=== PATIENT | male | born 1950 | race Caucasian/White ===

== ENCOUNTER 2021-09-23 10:08 | Day surgery (SDC) | payer OTHER ==
[2021-09-16 11:44] LABS: BASOPHILS # (AUTO) 0.1 X10'3 (0-0.2); BASOPHILS % (AUTO) 0.8 % (0-1); EOSINOPHILS # (AUTO) 0.4 X10'3 (0-0.9); EOSINOPHILS % (AUTO) 3.9 % (0-6); LYMPHOCYTES # (AUTO) 1.9 X10'3 (1.1-4.8); LYMPHOCYTES % (AUTO) 18.6 % (21-51); MEAN CORPUSCULAR HEMOGLOBIN 31.8 PG (27.0-31.0); MEAN CORPUSCULAR HGB CONC 34.2 g/dL (33.0-36.5); MEAN PLATELET VOLUME 9.9 FL (7.4-10.4); MONOCYTES # (AUTO) 1.3 X10'3 (0-0.9); MONOCYTES % (AUTO) 12.8 % (2-12); NEUTROPHILS # (AUTO) 6.4 X10'3 (1.8-7.7); NEUTROPHILS % (AUTO) 63.9 % (42-75); PRE OP HEMATOCRIT 39.7 % (42.0-52.0); PRE OP HEMOGLOBIN 13.6 g/dL (14.0-17.9); PRE OP PLATELET COUNT 172 X10'3 (140-440); RED BLOOD COUNT 4.27 X10'6 (4.70-6.10); RED CELL DISTRIBUTION WIDTH 13.8 % (11.5-14.5)
[2021-09-16 12:32] LABS: ALBUMIN 3.8 G/DL (3.4-5.0); ALBUMIN/GLOBULIN RATIO 1.2 (1.1-1.5); ALKALINE PHOSPHATASE 80 IU/L (46-116); BLOOD UREA NITROGEN 12 MG/DL (7-18); BUN/CREATININE RATIO 10.1 (5.4-32.0); CALCIUM 8.8 MG/DL (8.5-10.1); CREATININE 1.19 MG/DL (0.60-1.10); PRE OP ALT 18 U/L (30-65); PRE OP AST 15 U/L (10-37); PRE OP BILIRUB, TOTAL 0.3 MG/DL (0.0-1.0); PRE OP GLUCOSE 91 MG/DL (70-104); TOTAL CARBON DIOXIDE 25.6 MMOL/L (24-32); eGFR 60 ML/MIN
[2021-09-16 13:06] LABS: CHLORIDE 105 MMOL/L (99-107); PRE OP ANION GAP 9 (8-16); PRE OP SODIUM 140 MMOL/L (135-145)
[2021-09-23] VITALS (16 sets, daily range): BP systolic 115–136; BP diastolic 65–86
[~2021-09-23] VITALS: Ht 175.3 cm; Wt 60.2 kg
[~2021-09-23 10:08] MED LIST: ATOR40TA PO; LISI20TA28 PO; cefazolin/dext.iso 2gm/50ml IV ONE; famotidine 20mg tablet PO ONE; ringers solution, lacted 1,000 ML IV SCH; sevoflurane 250ml liquid IH ONE
[2021-09-23] MEDS ORDERED: BUPIVAcaine 0.5% inj/PF 30 ML ONE (13:03)
[2021-09-23] MEDS ORDERED: LIDOcaine 1% 30ml preserv. free vial ONE (13:03)
[2021-09-23] MEDS ORDERED: midazolam 1 mg/ML 2ml injection ONE (13:19)
[2021-09-23] MEDS ORDERED: fentaNYL/PF 50MCG/1 ML 2ML syringe ONE (13:19)
[2021-09-23] MEDS ORDERED: morphine 2 MG/ML inj. syringe IV PRN (13:50)
[2021-09-23] MEDS ORDERED: morphine 4 MG/ML inj SYRINge IV PRN (13:50)
[2021-09-23] MEDS ORDERED: meperidine/PF 25mg/ml syringe IV PRN ×3 (13:50)
[2021-09-23] MEDS ORDERED: proCHLORperazine 10 MG/2 ml inj IV PRN (13:50)
[2021-09-23] MEDS ORDERED: ringers solution, lacted 1,000 ML IV SCH (13:50)
[2021-09-23] MEDS ORDERED: ondansetron/PF 4mg/2ml inj IV PRN (13:50)
[2021-09-23] MEDS ORDERED: BUPIVAcaine 0.5% inj/PF 30 ml vial IJ ONE (14:03)
[2021-09-23] MEDS ORDERED: rocuronium 10mg/ml inj IV ONE (14:09)
[2021-09-23] MEDS ORDERED: neostigmine methylsulfate 1 MG/ML 10ml vial ONE (14:09)
[2021-09-23] MEDS ORDERED: glycopyrrolate 0.2mg/ml inj ONE (14:09)
[2021-09-23] MEDS ORDERED: dexamethasone sod phosphate 4mg/ml inj. ONE (14:10)
[2021-09-23] MEDS ORDERED: ondansetron/PF 4mg/2ml inj ONE (14:10)
[2021-09-23] MEDS ORDERED: propofol inj 20 ML IV ONE (14:10)
--- NOTE | 2021-09-23 14:24 | NUR ---
Received from OR via [facility], accompanied by Anesthesiologist DR PINK and report given by Anesthesiologist AND DECK ENGINEER. PT DROWSY, DENIES PAIN, ABDOMEN W/3 LAP SITES W/BANDAIDS CDI. Addendum: 09/23/21 at 1443 by Mariangel Rivera RN Amended: Links added.
[2021-09-23] MEDS ORDERED: HYDROcodone/acetaminophen 5mg/325mg tablet PO PRN (14:25)
--- NOTE | 2021-09-23 17:33 | NUR ---
PT HAS VOIDED X 2, BUT OVER 400 ML URINE REMAINS ON BLADDER SCAN, CALLED DR FLORES, ORDERS RECEIVED TO PLACE MANDEL CATHETER AND HAVE REMOVED IN HIS OFFICE, OR IF PT INSISTS MAY STRAIGHT CATH AND D/C PT TO HOME. Addendum: 09/23/21 at 1735 by Mariangel Rivera RN Amended: Links added.
[2021-09-23] MEDS ORDERED: LIDOcaine 2% 10ml TOPICAL JELLY (Urojet) MM ONE (17:35)
--- NOTE | 2021-09-23 18:34 | NUR ---
MANDEL CATHETER 16 FILIPINO PLACED W/ASEPTIC TECHNIQUE, PT TOLERATED FAIR, RETURN OF A SMALL AMOUNT OF BLOODY URINE IN BEGINNING FOR FIRST FEW CC'S OF URINE THEN BECAME YELLOW IN COLOR FOR A TOTAL OF 520 ML. D/C TEACHING AND INSTRUCTIONS GIVEN AND GONE OVER W/PT AND PTS WHO VERBALIZED UNDERSTANDING. PT D/CD TO HOME VIA W/C TO PRIVATE VEHICLE. Addendum: 09/23/21 at 1842 by Mariangel Rivera RN Amended: Links added.
== END 2021-09-23 18:34 | disposition home or self-care (01) ==
LOC: PAS 10:08
PROVIDERS: ATTEND Surgery
DX: K40.90 Unilateral inguinal hernia, without obstruction or gangrene, not specified as recurrent (principal); I10 Essential (primary) hypertension; E78.5 Hyperlipidemia, unspecified; F17.210 Nicotine dependence, cigarettes, uncomplicated; Z95.0 Presence of cardiac pacemaker; Z20.822 Contact with and (suspected) exposure to COVID-19; Z79.899 Other long term (current) drug therapy; Z90.49 Acquired absence of other specified parts of digestive tract; Z98.49 Cataract extraction status, unspecified eye; Z95.820 Peripheral vascular angioplasty status with implants and grafts; Z82.49 Family history of ischemic heart disease and other diseases of the circulatory system
CPT/HCPCS: 36415; 49650; 80053; 82948; 85025; C1781; J0690; J1100; J2250; J2405; J2704; J2710; J3010; J3490; J7030; J7120; S0020; U0003; U0005; Z7506; Z7508; Z7512; A4215; A4618

== ENCOUNTER 2025-06-07 16:56 | Emergency (ER) | payer OTHER ==
[~2025-06-07] VITALS: Ht 167.6 cm; Wt 63.6 kg
[~2025-06-07 16:56] MED LIST changes: -cefazolin/dext.iso 2gm/50ml IV ONE; -famotidine 20mg tablet PO ONE; -ringers solution, lacted 1,000 ML IV SCH; -sevoflurane 250ml liquid IH ONE
[2025-06-07 17:06] VITALS: TEMP 97.7
--- NOTE | 2025-06-07 17:15 | ELECTROCARDIOGRAPH REPORT ---
[facility] Test Date: 2025-06-07 Test Time: 17:13:11 Pat Name: FLEIX CALDWELL Department: EMERGENCY ROOM Room: Gender: M [employer]: NANCY : 1950 Requested By: ALEXANDRA HAYS Order Number: [id number] Reading MD: Measurements Intervals [place] Rate: 62 P: 0 SD: 193 QRS: 40 QRSD: 91 T: 56 QT: 412 QTc: 419 Interpretive Statements Atrial-paced complexes Borderline low voltage, extremity leads Please click the below link to view image of tracing.
[2025-06-07 17:20] LABS: MEAN PLATELET VOLUME 9.1 FL (7.4-10.4); RED CELL DISTRIBUTION WIDTH 14.0 % (11.5-14.5)
--- NOTE | 2025-06-07 17:32 | RADIOLOGY REPORT ---
CHEST RADIOGRAPH Indication: CP Technique: Single frontal view of the chest was obtained Comparison: None FINDINGS: Lines and Tubes: None. Left-sided approach dual lead pacemaker terminating within right atrium and r ight ventricle. Lungs: No focal consolidation. Pleura: No effusion. No pneumothorax. Cardiomediastinal contours: Unremarkable Bones: No acute osseous abnormality. IMPRESSION: No acute cardiopulmonary disease.
[2025-06-07 17:43] LABS: CREATININE 1.40 MG/DL (0.60-1.10); PRO BRAIN NATRIURETIC PEPTIDE 244 PG/ML (0-450); TOTAL CARBON DIOXIDE 24.3 MMOL/L (24-32); eCRCL 40 ML/MIN; eGFR 49 ML/MIN
--- NOTE | 2025-06-07 19:27 | Physician Documentation ---
History of Present Illness ~ Chief Complaint: Dizziness Stated Complaint: DIZZY Time Seen by MD: 19:26 HPI Patient presents to the emergency room for evaluation of dizziness. He is feeling dizzy like he was going to pass out and then states it feels like vertigo exacerbated with head movement. He noted that has heart rate was going down into the 50s and he is normally paste that has 70 therefore [facility] that has noted to be bradycardic. He has history of pacemaker placement and supposed to be paced at 70. He denies any chest pain. He reports that he just had his pacemaker checked about two weeks ago and was reported to be in good condition with another four years left of battery life. Medication Reconciliation Allergies: Coded Allergies: No Known Allergies (Unverified , 09/22/21) Scheduled Atorvastatin Calcium* (Lipitor*), 1 TAB PO DAILY, (Reported) Lisinopril (Lisinopril), 5 MG PO DAILY, (Reported) Review of Systems ROS All review of systems negative except as per HPI Physical Exam Vital Signs: Temperature: 97.7, Source: Temporal, Heart Rate: 60, Respiratory Rate: 16, BP: 160/86, Pulse Oximetry: 97, Weight: 63.640 Physical Exam General: Patient is awake, alert, oriented x4 in no acute distress Head: Normocephalic and atraumatic. Eyes: Conjunctival normal. EOMI. PERRL. ENT: Mucous membranes moist. Neck: Supple, trachea is midline. Chest: Clear to auscultation bilaterally without rales, rhonchi, or wheezes. T here is no accessory muscle use or retractions. Pacemaker appears normally placed in left upper chest wall Cardiac: RRR without murmurs, gallops, or rubs. Abd: Soft, nondistended, nontender, with normoactive bowel sounds. No guarding, rebound, or rigidity. Progress Results/Orders Results/Orders Vital Signs 06/07/25 06/07/25 06/07/25 17:06 19:27 19:54 Temp 97.7 Pulse 60 60 Resp 16 13 16 B/P (MAP) 160/86 160/91 (114) Pulse Ox 97 97 O2 Flow Rate 0 Laboratory Tests Test 06/07/25 17:12 06/07/25 19:50 White Blood Count 10.7 Red Blood Count 3.78 L Hemoglobin 11.4 L Hematocrit 33.0 L Mean Corpuscular Volume 87.2 Mean Corpuscular Hemoglobin 30.0 Mean Corpuscular Hemoglobin Concent 34.5 Red Cell Distribution Width 14.0 Platelet Count 225 Mean Platelet Volume 9.1 Neutrophils (%) (Auto) 74.3 Lymphocytes (%) (Auto) 13.2 L Monocytes (%) (Auto) 10.7 Eosinophils (%) (Auto) 1.3 Basophils (%) (Auto) 0.5 Neutrophils # (Auto) 8.0 H Lymphocytes # (Auto) 1.4 Monocytes # (Auto) 1.1 H Eosinophils # (Auto) 0.1 Basophils # (Auto) 0.0 CBC Comment Sodium Level 133 L Potassium Level 3.9 Chloride Level 101 Carbon Dioxide Level 24.3 Anion Gap 8 Blood Urea Nitrogen 11 Creatinine 1.40 H Estimated GFR/1.73 m2 49 BUN/Creatinine Ratio 7.9 L Glucose Level 96 Calcium Level 8.7 Troponin I High Sensitivity 34 29 Pro-B-Type Natriuretic Peptide 244 Albumin 3.8 Chemistry Comments Troponin I High Sens Percent Delta 14 Troponin I Hi Sens Absolute Change -5 EKG/XRAY/CT/US/VASC/MRI EKG : Additional Comment EKG interpreted by myself shows time of 17 13, rate 62, atrial paced rhythm. No ST changes Chest X-Ray : Additional Comments Exam: CHEST,SINGLE VIEW CHEST RADIOGRAPH Indication: CP Technique: Single frontal view of the chest was obtained Comparison: None FINDINGS: Lines and Tubes: None. Left-sided approach dual lead pacemaker terminating within right atrium and right ventricle. Lungs: No focal consolidation. Pleura: No effusion. No pneumothorax. Cardiomediastinal contours: Unremarkable Bones: No acute osseous abnormality. IMPRESSION: No acute cardiopulmonary disease. Medical Decision Making Findings Patient presents to the emergency room with dizziness and bradycardia. Diff erentials include but are not limited to pacemaker malfunction, ACS, symptomatic bradycardia, benign positional vertigo therefore emergent labs and interpretation of patient is device implemented. Report from interpreting the device states that it was working properly. They have my doubts that it was working properly as his heart rate is going into the 50s and I suspect there may be a dislodged lead or something of the nature. We will admit for further investigation. Patient's dizziness is described as the room moving and exacerbated with head movement and I believe that has dizziness that has actually from benign positional vertigo. I do not suspect stroke Departure Admitted to Inpatient Unit: yes, to hospitalist Impression: Primary Impression: Dizziness Additional Impression: Bradycardia Condition: Guarded Referrals: NO PRIMARY CARE PROVIDER (PCP) Signature Scribe Signature: No scribe Attestation: The note accurately reflects work and decisions made by me.Michael Daniel MD 06/07/25 21:01 MICHAEL DANIEL MD Jun 07, 2025 19:27
[2025-06-07] MEDS ORDERED: MECL-231 PO (22:57)
[2025-06-07 22:59] VITALS: BP 147/87; PULSE 64; RESP 16; O2SAT 98
== END 2025-06-07 23:17 | disposition home or self-care (01) ==
LOC: ER 16:57
DX: R00.1 Bradycardia, unspecified (principal); R42 Dizziness and giddiness; R06.02 Shortness of breath
CPT/HCPCS: 36415; 71045; 80048; 83880; 84484; 85025; 93005; 99285